=== PATIENT | male | born 1995 | race African-American/Black ===

== ENCOUNTER 2018-08-20 23:26 | Emergency (ER) | payer MEDICAID ==
--- NOTE | 2018-08-21 00:03 | NUR ---
CALLED PT TO BE TRIAGED, NO ANSWER
--- NOTE | 2018-08-21 00:38 | NUR ---
CALLED PT TO BE TRIAGED NO ANSWER, PER ADMITTING, PT LEFT
== END 2018-08-21 00:39 | disposition left against medical advice (07) ==
LOC: ER 23:52
DX: Z53.21 Procedure and treatment not carried out due to patient leaving prior to being seen by health care provider (principal)